=== PATIENT | female | born 1975 | race Caucasian/White ===

== ENCOUNTER 2023-10-17 16:01 | Outpatient (REF) | payer BC, SELFPAY ==
--- NOTE | ~2023-10-17 | XR_ITS ---
EXAMINATION: XR CHEST CLINICAL INFORMATION: Pleuritic chest pain. COMPARISON: None available. TECHNIQUE: 2 views of the chest were obtained. FINDINGS: Heart size is normal. There is no consolidation within either lung. There is asymmetric elevation of the right hemidiaphragm. There is no pleural effusion or pneumothorax. No acute osseous abnormality. XR/XR chest 2V IMPRESSION: No acute cardiopulmonary disease.
== END 2023-10-17 16:02 | disposition home or self-care (01) ==
LOC: HO.HHCX 16:01
PROVIDERS: Visit Provider Registered Nurse
DX: R07.9 Chest pain, unspecified (principal)
CPT/HCPCS: 71046

== ENCOUNTER 2025-03-10 12:39 | Outpatient (REF) | payer BC, SELFPAY ==
--- NOTE | ~2025-03-10 | XR_ITS ---
EXAMINATION: XR KNEE, RIGHT CLINICAL INFORMATION: PAIN COMPARISON: None available. TECHNIQUE: AP and lateral views of the right knee. FINDINGS: There is a joint effusion. There is mild narrowing of the medial joint space. There are marginal osteophytes, largest along the lateral joint line and patellofemoral joint. XR/XR knee RT 2V IMPRESSION: Mild osteoarthritis. Joint effusion. Electronically signed by: Tim Lei MD 03/10/2025 01:02 PM EDT
--- OUTSIDE RECORDS SUMMARY | 2025-03-10 17:28 | XMS_ITS | Encounter Summary ---
Author Organization [facility] Address [address] [place] [address] Phone Care Team Providers Care Medication Reconciliation Technician Name Role Phone Jovana Pyle MD Unavailable [phone] Jovana Pyle MD Primary Care Provider + [phone] Rozina Cunningham MBBS Unavailable [phone] Encounter Details Date Type Department Care Team (Late st Contact Info) Description 03/30/2021 Procedure Pass [facility], [facility] [address] [place], [place] [id number] Social History Tobacco Use Types Packs/Day Years Used Date Smoking Tobacco: Never Smokeless Tobacco: Never Alcohol Use Standard Drinks/Week Comments Yes 0 (1 standard drink = 0.6 oz pur e alcohol) rarely Child or Family Care Answer Date Record ed Do you have problems with on e of the following making it difficult for you to work, study, or receive health care? No 10/27/2020 Education Answer Date Recorded Are you interested in help w ith more adult education (for example, completing high school, GED, job training, learning the Beninese language, technical skills, or developing parenting skills)? No 10/27/2020 Food Answer Date Recorded Within the past 6 months we worried whether our food would run out before we got money to buy more. Never True 10/27/2020 Within the past 6 months the food we bought just didn't last and we didn't have enough money to get more. Never True Paying for Meds Answer Date Recorded Do you have trouble paying for medicines? No 10/27/2020 Paying Utility Bills Answer Date Record ed Do you have trouble paying your heating or elect ricity bill? No 10/27/2020 Transportation Answer Date Recorded Has the lack of transportati on kept you from medical appointments or from getting medications? No 10/27/2020 Unemployment Answer Date Recorded Are you currently unemployed or working on a part-time or temporary basis, and looking for work? 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 Not on file Not on file documented as of this encounter Plan of Treatment Not on file documented as of this encounter Visit Diagnoses Not on filedocumented in this encounter Additional Health Concerns Infection Onset Date Last Indicated Resolved Time CoV-Risk 10/12/2023 10/12/2023 10/23/2023 1:21 AM EDT Assessment Noted Time PHQ-2 Depression Total Score: 0 04/05/20 19 3:26 PM EDT documented as of this encounter Care Teams Medication Reconciliation Technician Relationship Specialty Start Date End Date Jovana Pyle MD [address] [place] [address], [address] [address] PCP - General 06/19/17 Jovana Pyle MD [address] [place] [address], [address] [address] Historical LMR Provider 04/01/17 Rozina Cunningham MBBS [address] [place] [address], [address] [address] [email or web address] 10/16/23 documented as of this encounter Additional Source Comments The information contained in this document represents components of the legal health record. It is not the complete legal health record.[facility]
--- OUTSIDE RECORDS SUMMARY | 2025-03-10 17:28 | XMS_ITS | Encounter Summary ---
Author Organization [facility] Address [address] [place] [address] Phone Care Team Providers Care Territory Outside Sales Manager Name Role Phone Jovana Pyle MD Unavailable [phone] Jovana Pyle MD Primary Care Provider [phone] Rozina Cunningham MB Unavailable [phone] Encounter Details Date Type Department Care Team (Late st Contact Info) Description 04/08/2018 Procedure Pass [facility] Admitting Dept Virtual Department [address] [place], [place] [id number] Social History Tobacco Use Types Packs/Day Years Used Date Smoking Tobacco: Never Smokeless Tobacco: Never Alcohol Use Standard Drinks/Week Comments Yes 0 (1 standard drink = 0.6 oz pur e alcohol) rare, less than once a week Comments Unknown Sex and Gender Information Value Date Recorded Sex Assigned at Not on file Legal Sex Female 9:29 PM EDT Gender Identity Not on file Sexual Orientation Not on file documented as of this encounter Plan of Treatment Not on file documented as of this encounter Visit Diagnoses Not on filedocumented in this encounter Additional Health Concerns Infection Onset Date Last Indicated Resolved Time CoV-Exposed Comment:Recent close contact 11/15/2019 11/15/2019 11/29/2019 1:23 AM EDT CoV-Risk 01/14/2020 01/15/2020 01/29/2020 1:23 AM EDT CoV-Exposed Comment:Recent close contact 04/10/2020 04/10/2020 04/24/2020 1:24 AM EST CoV-Risk 10/12/2023 10/12/2023 10/23/2023 1:21 AM EDT documented as of this encounter Care Teams Territory Outside Sales Manager Relationship Specialty Start Date End Date Jovana Pyle MD [address] [place] [address], [address] [place] [address] PCP - General 06/19/17 Jovana Pyle MD [address] [place] [address], [address] [place] [address] [email or web address] Historical LMR Provider 04/01/17 Rozina Cunningham MBBS [address] [place] [address], [address] [address] [email or web address] 10/16/23 documented as of this encounter Additional Source Comments The information contained in this document represents components of the legal health record. It is not the complete legal health record.[facility]
--- OUTSIDE RECORDS SUMMARY | 2025-03-10 17:28 | XMS_ITS | Encounter Summary ---
Author Organization [facility] Address [address] [place] [address] Phone Care Team Providers Care Child Care Coordinator Name Role Phone Jovana Pyle MD Unavailable [phone] Jovana Pyle MD Primary Care Provider + [phone] Rozina Cunningham MBBS Unavailable [phone] Encounter Details Date Type Department Care Team (Late st Contact Info) Description 04/06/2022 Procedure Pass [facility], [facility] [address] [place], [place] [id number] Social History Tobacco Use Types Packs/Day Years [...] high school, GED, job training, learning the Kazakh language, technical skills, or developing parenting skills)? [...] 10/23/2023 1:21 AM EDT Assessment Noted Time PHQ-9 Depression Total Score: 1 09/04/19 22 4:31 PM EDT PHQ-2 Depression Total Score: 0 09/04/19 22 4:31 PM EDT documented as of this encounter Care Teams Child Care Coordinator Relationship Specialty Start Date End Date Jovana Pyle MD [address] [place] [address], [address] [address] PCP - General 06/19/17 Jovana Pyle MD [address] [place] [address], [address] [address] Historical LMR Provider 04/01/17 Rozina Cunningham MBBS [address] [place] [address], [address] [address] [email or web address] 10/16/23 documented as of this encounter Additional Source Comments The information contained in this document represents components of the legal health record. It is not the complete legal health record.[facility]
--- OUTSIDE RECORDS SUMMARY | 2025-03-10 17:28 | XMS_ITS | Encounter Summary ---
Author Organization [facility] Address [address] [place] [address] Phone Care Team Providers Care Program Eligibility Specialist Name Role Phone Jovana Pyle MD Unavailable [phone] Jovana Pyle MD Primary Care Provider + [phone] Rozina Cunningham MBBS Unavailable [phone] Encounter Details Date Type Department Care Team (Late st Contact Info) Description 01/11/2021 Procedure Pass [facility] Admitting Dept Virtual Department [address] [place], [place] [phone] Social History Tobacco Use Types Packs/Day Years [...] high school, GED, job training, learning the Polish language, technical skills, or developing parenting skills)? [...] documented as of this encounter Care Teams Program Eligibility Specialist Relationship Specialty Start Date End Date Jovana Pyle MD [address] [place] [address], [address] [address] PCP - General 06/19/17 Jovana Pyle MD [address] [place] [address], [address] [address] Historical LMR Provider 04/01/17 Rozina Cunningham MBBS [address] [place] [address], [address] [address] [email or web address] 10/16/23 documented as of this encounter Additional Source Comments The information contained in this document represents components of the legal health record. It is not the complete legal health record.[facility]
--- OUTSIDE RECORDS SUMMARY | 2025-03-10 17:28 | XMS_ITS | Encounter Summary ---
Author Organization [facility] Address [address] [place] [address] Phone Care Team Providers Care Return Agent Name Role Phone Jovana Pyle MD Unavailable [phone] Jovana Pyle MD Primary Care Provider + [phone] Rozina Cunningham MB Unavailable [phone] Encounter Details Date Type Department Care Team (Late st Contact Info) Description 08/12/2024 Procedure Pass [facility] - [address] [place] [address] Social History Tobacco Use Types Packs/Day Years Used Date Smoking Tobacco: Never Smokeless Tobacco: Never Alcohol Use Standard Drinks/Week Comments Yes 0 (1 standard drink = 0.6 oz pur e alcohol) rarely Child or Family Care Answer Date Record ed Do you have problems with on e of the following making it difficult for you to work, study, or receive health care? No 12/22/2023 Education Answer Date Recorded Are you interested in help w ith more adult education (for example, completing high school, GED, job training, learning the Japanese language, technical skills, or developing parenting skills)? No 12/22/2023 Are you concerned about learning? Not on file 12/22/2023 No 12/22/2023 Yes 12/22/2023 Food Answer Date Recorded Within the past 6 months we worried whether our food would run out before we got money to buy more. Never True 12/22/2023 Within the past 6 months the food we bought just didn't last and we didn't have enough money to get more. Never True Residential Stability Answer Date Recor ded What is your housing situation today? I have milli diop 12/22/2023 How many times have you move d in the past 12 months? Zero (I did not move) 12/22/2023 Paying for Meds Answer Date Recorded Do you have trouble paying for medicines? No 12/22/2023 Paying Utility Bills Answer Date Record ed Do you have trouble paying your heating or elect ricity bill? No 12/22/2023 Transportation Answer Date Recorded Has the lack of transportati on kept you from medical appointments or from getting medications? No 12/22/2023 Unemployment Answer Date Recorded Are you currently unemployed or working on a part-time or temporary basis, and looking for work? No 10/27/2020 Digital Access Answer Date Recorded No 12/22/2023 Yes 12/22/2023 Do you have reliable internet access at home? Ye s 12/22/2023 Do you have a device (e.g., phone, tablet, computer) with a working camera? Yes 12/22/2023 Intimate Partner Violence Answer Date R ecorded Denied Basic Needs Not on file 12/22/2023 In the past 12 months have y ou been in a relationship with a person who hurts, threatens, or tries to control you? No 12/22/2023 Worried food would run out Not on file 12/21 In the past 12 months have y ou been in a relationship with a person who hurts, threatens, or tries to control you? No 12/22/2023 Comments No Sex and Gender Information Value [...] filedocumented in this encounter Additional Health Concerns Assessment Noted Time PHQ-9 Depression Total Score: 1 09/04/19 22 4:31 PM EDT PHQ-2 Depression Total Score: 0 12/22/19 24 3:17 PM EDT documented as of this encounter Care Teams Return Agent Relationship Specialty Start Date End Date Jovana Pyle MD [address] [place] [address] [email or web address] PCP - General 06/19/17 Jovana Pyle MD [address] [place] [address], [address] [place] [address] [email or web address] Historical LMR Provider 04/01/17 Rozina Cunningham MBBS [address] [place] [address], [address] [place] [address] [email or web address] 10/16/23 documented as of this encounter Additional Source Comments The information contained in this document represents components of the legal health record. It is not the complete legal health record.[facility]
--- OUTSIDE RECORDS SUMMARY | 2025-03-10 17:30 | XMS_ITS | Clinical Summary ---
Author Organization [facility] Address [address] [facility] [address] [place] [id number] Phone Care Team Providers Care 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 Name Role Phone Jovana Pyle MD Unavailable [phone] Jovana Pyle MD Primary Care Provider + [phone] Rozina Cunningham MB Unavailable [phone] Allergies Active Allergy Reactions Criticality Noted Date Comments Sulfa (Sulfonamide Antibiotics) Hives Medium 09/14 Medications esomeprazole (NEXIUM) 40 MG capsule Take 1 capsule by mouth daily before breakfast. Active EPINEPHrine (EPIPEN 2-KAREN) 0.3 mg/0.3 mL auto-injector Inject 0.3 mL (0.3 mg total) into the muscle as needed for anaphylaxis. 1 Device 05/11/2019 Active mometasone (NASONEX) 50 mcg/actuation nasal spray 2 sprays by Nasal route daily. As needed Active cholecalciferol , vitamin D3, (VITAMIN D3) 100 mcg (4,000 unit) capsule Take 2,000 Units by mouth. Active cetirizine (ZYRTEC) 10 MG tablet Take 10 mg by mouth daily. Active famotidine (PEPCID) 20 MG tablet Take 40 mg by mouth nightly at bedtime. Active SYNTHROID 125 mcg tablet TAKE ONE TABLET BY MOUTH EVERY MORNING 90 tablet 3 07/07/2024 Active ELIQUIS 5 mg tabletIndicatio ns:Acute deep vein thrombosis (DVT) of popliteal vein of right lower extremity TAKE ONE TABLET BY MOUTH TWICE A DAY 60 tablet 6 07/19/2024 Active venlafaxine (EFFEXOR-XR) 37.5 MG 24 hr capsule TAKE ONE CAPSULE BY MOUTH EVERY DAY 90 capsule 3 09/01/2024 Active Active Problems Problem Noted Date Diagnosed Date Iron deficiency anemia due to chronic blood loss 2023 Lymphadenopathy, inguinal 11/14/2023 Leucocytosis 11/14/2023 Anemia in other chronic diseases classified else where 11/14/2023 Thrombocytosis 11/14/2023 Acute deep vein thrombosis ( DVT) of popliteal vein of right lower extremity 11/14/2023 Assessment & Plan (06/23/2024 3:03 PM EST): IMPRESSION: This is a 48-year-old woman with the following hematological diagnoses: Right lower extremity below the knee DVT, appears unprovoked 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 DVT. This appears unprovoked. Traveling for long distances is not a major risk factor for thrombosis. Hypercoagulable screen came back showing protein S activity of 21% although repeat testing showed 39%. Protein S antigen is within normal range. This mild decrease in protein S activity is not clinically significant. According to current guidelines acute V?? management is not different from V?E in the general population and typically includes anticoagulation for at least three to six months She has been on anticoagulation for over 8 months now and I think it is reasonable to discontinue it any further. If she develops recurrent thrombosis following discontinuation of anticoagulation, then she will be a candidate for lifelong anticoagulation. Iron deficiency anemia. This is likely secondary to menstrual blood loss. This has resolved. Thrombocytosis, leukocytosis: This is either normal variant or secondary/reactive in nature. She underwent extensive laboratory evaluation in this regard which came back unremarkable. Some degree of leukocytosis can be seen in obese people. Since this has been overall stable and intermittent in nature, is reassuring and speaks against any underlying hematological disease/bone marrow disease process. I reassured her about this. Right inguinal lymphadenopathy: The report stated non enlarged lymph node although it measures 3.4 x 0.5 x 1.4 cm. I discussed her case in our tumor conference and scans were reviewed. Consensus: It appears that the lymph node is elongated hence 3.[address] otherwise has normal hilum and no other concerning features so this is a normal variant and no further surveillance ultrasound is indicated in this setting. RECOMMENDATIONS: She can discontinue Eliquis She is traveling to [place] sometime next month and will discontinue Eliquis after she comes back Continue oral iron supplements 2-3 times a week CBCD and iron studies monitoring every 6 months which can be done through her PCPs office Follow-up with hematology on as-needed basis Thank you very much for allowing to participate in this patient's care Assessment & Plan (2023 10:30 PM EDT): IMPRESSION: This is a 47-year-old woman with the following hematological diagnoses: Right lower extremity below the knee DVT, appears unprovoked Hypercoagulable screen came back showing protein as deficiency (reduced protein S activity of 21% although normal protein S free antigen) Chronic intermittent borderline leukocytosis Negative PCR for BCR/ABL, negative peripheral blood flow cytometry Anemia, likely in the setting of iron deficiency secondary to heavy menstrual blood loss Chronic intermittent thrombocytosis Negative JAK2 V6 1 7 and exon 12-15 mutation, Negative MPL AND CALR gene mutation Right inguinal lymphadenopathy likely reactive in nature DISCUSSION: I discussed all impression, differential diagnosis, natural history of the disease and further management in this regard. DVT. This appears unprovoked. Traveling for long distances is not a major risk factor for thrombosis. 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 Patient will undergo repeat testing for this and if it is confirmed, then patient will be a candidate for indefinite/lifelong anticoagulation in this setting. Anemia. Patient has evidence of iron deficiency likely secondary to heavy menstrual blood loss. She has been on oral iron supplement but continues to be significantly iron deficient and anemic. I recommended a course of IV iron infusion. Thrombocytosis, leukocytosis: This is either normal variant or secondary/reactive in nature although it is important to rule out an underlying hematological disease/bone marrow disease process. She underwent extensive laboratory evaluation in this regard which came back unremarkable. Leukocytosis has resolved although thrombocytosis has worsened. This may be secondary to underlying iron deficiency. I recommended IV iron infusion to correct iron deficiency and once its corrected and if patient continues to have significant thrombocytosis, will consider bone marrow aspiration and biopsy. Right inguinal lymphadenopathy: It is likely reactive in nature since it is on the same side where the thrombosis and ultrasound also did not show any aggressive features. I recommended follow-up right inguinal ultrasound in 2 months from now. RECOMMENDATIONS: Continue Eliquis 5 mg every 12 hours Repeat testing for protein as deficiency Patient is a likely candidate for indefinite/lifelong anticoagulation Schedule a course of IV iron infusion Follow-up right inguinal ultrasound in 2 months Return for follow-up in 2 months Thank you very much for allowing to participate in this patient's care Assessment & Plan (11/14/2023 10:02 AM EDT): IMPRESSION: This is a 47-year-old woman with the following hematological diagnoses: Right lower extremity below the knee DVT, appears unprovoked Chronic intermittent borderline leukocytosis Anemia, likely in the setting of iron deficiency secondary to heavy menstrual blood loss Chronic intermittent thrombocytosis Right inguinal lymphadenopathy likely reactive in nature DISCUSSION: I discussed all impression, differential diagnosis, natural history of the disease and further management in this regard. DVT. This appears unprovoked. Traveling for long distances is not a major risk factor for thrombosis. Patient will undergo hypercoagulable screen to further decide about duration of anticoagulation. Since this is below the knee DVT, indefinite anticoagulation is not recommended even if it is unprovoked. I would recommend a minimum 3 months of anticoagulation in the setting. This recommendation may change depending upon the results of the hypercoagulable screen. Anemia. Patient has evidence of iron deficiency likely secondary to heavy menstrual blood loss. I recommended that she starts taking oral iron supplements and if she develops any side effects from this or does not respond to this, then we will consider IV iron infusion. Thrombocytosis, leukocytosis: This is either normal variant or secondary/reactive in nature although it is important to rule out an underlying hematological disease/pulmonary disease process. Patient will undergo appropriate laboratory evaluation in this regard. Right inguinal lymphadenopathy: It is likely reactive in nature since it is on the same side where the thrombosis and ultrasound also did not show any aggressive features. I recommended follow-up right inguinal ultrasound in 2 months from now. RECOMMENDATIONS: Continue Eliquis 5 mg every 12 hours for total of 3 months at this time Obtain hypercoagulable screen and if positive, will change the recommendation about duration of anticoagulation Start oral iron supplement, Vitron-C once daily. If patient does not respond to it or develop any significant side effects, will consider IV iron infusion CBCD, nutritional studies, inflammatory markers Multiple myeloma screen Peripheral blood flow cytometry, JAK2 mutation analysis, peripheral blood PCR for BCR-ABL, LIDA/MPL mutation analysis Follow-up right inguinal ultrasound in 2 months Follow-up with me over the phone to discuss the results of the blood work Thank you very much for allowing to participate in this patient's care Anxiety and depression 04/06/2019 Esophagitis 04/08/2018 Overview (04/08/2018): EGD 2018 Other hemorrhoids 04/08/2018 Overview (04/08/2018): Colonoscopy 2018 GERD (gastroesophageal reflux disease) 8 Hypothyroid 09/25/2017 Obesity 09/25/2017 Resolved Problems Problem Noted Date Diagnosed Date Resolved Date Anal fissure 04/05/2019 12/22/2023 Overview (04/05/2019): S/p surgical excision with polyp Dizziness 09/25/2017 12/22/2023 Immunizations Immunization Administration Dates Next Due COVID-19 (Pre-04/07) Moderna Vaccine, mRNA, PF 0 07/06/2020,06/08/2020 INFLUENZA, SPLIT VIRUS, TRIVALENT PF 03/27/2016 INFLUENZA, SPLIT VIRUS, TRIVALENT W/ PRESERVATIV E IM 03/19/2011 Influenza Quadrivalent MDCK Preservative Free IM 04/09/2022,03/10/2020 Influenza Quadrivalent Preservative Free IM 04/16,04/11/2021 Influenza Quadrivalent w/ Preservative IM 2014 Influenza, Unspecified Formulation 04/01/2019, Tdap 04/05/2019 Family History Medical History Relation Comments No Known Problems Brother Colon polyps Father Breast cancer Maternal Grandmother post menopa usal Hyperlipidemia Maternal Grandmother Bipolar disorder Mother possible bipola r, anxiety Hypertension Mother Colon cancer Paternal Grandfather Colon cancer Paternal Uncle Colon polyps Sister Hypertension Sister Takayasu's disease Sister Relation Status Comments Brother Alive Father Alive Maternal Grandmother Alive Mother Alive Paternal Grandfather Paternal Uncle Sister Alive Social History Tobacco Use Types Packs/Day Years Used Date Smoking Tobacco: Never Smokeless Tobacco: Never Tobacco Cessation:Counseling Given: Not Answered Alcohol Use Standard Drinks/Week Comments Yes 0 [...] high school, GED, job training, learning the [place] language, technical skills, or developing parenting skills)? [...] your housing situation today? I have milli sing 12/22/2023 How many times have you move [...] have reliable internet access at home? Ye thuan 12/22/2023 Do you have a device (e.g., [...] file Not on file Not on file Last Filed Vital Signs Vital Sign Reading Time Taken Comments Blood Pressure 128/62 12/22/2023 3:40 PM EDT Pulse 63 12/22/2023 3:40 PM EDT Temperature 36.7 C (98 F) 12/22/2023 3:40 PM EDT Respiratory Rate 19 10/12/2023 9:40 AM EDT Oxygen Saturation 99% 12/22/2023 3:40 PM EDT Inhaled Oxygen Concentration - - Weight 129.5 kg (285 lb 8 oz) 11/13/2023 12:04 P M EDT Height 157.5 cm (5' 2.01 ) 11/13/2023 12:04 PM E DT Body Mass Index 52.21 11/13/2023 12:04 PM EDT Plan of Treatment Health Maintenance Due Date Last Done Comments COLOGUARD 12/01/2019 FIT TEST 12/01/2019 FOBT 12/01/2019 SIGMOIDOSCOPY 12/01/2019 VIRTUAL COLONOSCOPY 12/01/2019 CREATININE LEVEL 09/23/2024 09/24/2023, , 04/09/2022, Additional history exists TSH LEVEL 09/23/2024 09/24/2023, 08/14, 04/09/2022, Additional history exists PNEUMOCOCCAL VACCINES (50+ years) (1 of 1 - PCV) 2024 ZOSTER VACCINES (1 of 2) 2024 DEPRESSION SCREENING 12/21/2024 12/22/2023, 09/04/19 22 INFLUENZA VACCINE (#1) 2025 , 04/09/2022, 04/11/2021, Additional history exists COVID-19 VACCINE ( - season) 2025 04/25/2023, 04/19/2022, 04/27/2021, Additional history exists MAMMOGRAM 09/22/2026 09/22/2024, 07/17, 05/24/2022, Additional history exists SCREENING FOR DIABETES 09/23/2026 09/24/2023, 2023 LIPID PANEL 08/27/2027 08/26/2022, 08/14, 01/06/2018, Additional history exists PAP SMEAR 12/21/2028 12/22/2023, 03/17, 04/05/2019, Additional history exists Adult Td,Tdap Booster 04/05/2029 04/05/2019 COLONOSCOPY 01/11/2031 01/11/2021, 03/17, 12/07/2014 COLORECTAL CANCER SCREENING 01/11/2031 HIV ONE-TIME SCREENING (18-65 YEARS) Completed 09/02/2012 HEPATITIS C SCREENING Completed 01/27/2024 SMOKING STATUS SCREENING (Once After 26 Yrs) Completed 09/22/2024 HEPATITIS A VACCINES Aged Out No long er eligible based on patient's age to complete this topic HIB VACCINES Aged Out No longer eligi ble based on patient's age to complete this topic MENINGOCOCCAL VACCINES (ACWY) Aged Out No longer eligible based on patient's age to complete this topic MENINGOCOCCAL VACCINES (B) Aged Out N o longer eligible based on patient's age to complete this topic Medical Devices Not on file Procedures Procedure Name Priority Date/Time Associated Diagnosis Comments BI MAMMOGRAM SCREENING WITH TOMOSYNTHESIS WITH CAD (BILATERAL) Routine 09/22/2024 3:26 PM EDT Visit for screening mammogram HEPATITIS C ANTIBODY, QUALITATIVE Routine 01/27/2024 3:59 PM EDT Need for hepatitis C screening test PAP TEST Routine 12/22/2023 12:00 AM EDT TSH WITH REFLEX Routine 09/24/2023 1:41 PM EDT Acquired hypothyroidism COMPREHENSIVE METABOLIC PANEL Routine 09/24/2023 1:41 PM EDT Pre-diabetes Class 3 severe obesity with body mass index (BMI) of 50.0 to 59.9 in adult, unspecified obesity type, unspecified whether serious comorbidity present LIPID PANEL Routine 08/26/2022 3:15 PM EDT Class 3 severe obesity with body mass index (BMI) of 50.0 to 59.9 in adult, unspecified obesity type, unspecified whether serious comorbidity present Pre-diabetes ENDOSCOPY, COLON 01/11/2021 10:1 4 AM EDT OUTSIDE HIV Routine 09/02/2012 from Last 3 Months or Most Recently Relevant to Health Maintenance Results * BI MAMMOGRAM SCREENING WITH TOMOSYNTHESIS WITH CAD (BILATERAL) (09/22/2024 3:26 PM EDT) Anatomical Region Laterality Modality Breast Left, Breast Right, Breast Bilateral Bila teral Mammography 09/22/2024 4:26 PM EDT Impressions 09/22/2024 4:28 PM EDT No mammographic evidence of malignancy in either breast. Annual screening mammography is recommended. BI-RADS 1 NEGATIVE The patient will be notified of the results and recommendations. Narrative 09/22/2024 4:28 PM EDT BI MAMMOGRAM SCREENING WITH TOMOSYNTHESIS WITH CAD (BILATERAL) Additional patient information: Screening. COMPARISON: Comparison is made with relevant prior imaging. Breast composition: The breasts are almost entirely fatty. FINDINGS: No abnormal masses, suspicious calcifications, or other significant findings are identified mammographically in either breast. us Jovana Pyle MD IMG MG EXAMS Final Resu lt * Hepatitis C antibody, qualitative (01/27/2024 3:59 PM EDT) HCV NON-REACTIV E NON-REACTI VE [facility] Blood 01/27/2024 3:59 PM EDT 01/27/2024 4:02 PM EDT us Jovana Pyle MD LAB BLOOD ORDERABLES Final Result [address] [address] * Pap Test (12/22/2023 12:00 AM EDT) 12/22/2023 12/23/2023 9:1 3 AM EDT Narrative SEE NARRATIVE - 12/25/2023 11:29 AM EDT [address] [address] Dye Worker: Lisa Jo MD VISUAL EDUCATION DIRECTOR Cytology Report FINAL DIAGNOSIS A. PAP SMEAR (THIN PREP) CE: SPECIMEN ADEQUACY: Satisfactory for evaluation; transformation zone absent/insufficient. INTERPRETATION: NEGATIVE FOR INTRAEPITHELIAL LESION OR MALIGNANCY. Coccobacilli consistent with shift in kalie This specimen was analyzed by the automated ThinPrep Imaging System ([employer].) and the selected cash were reviewed by a slab grinder. Electronically Signed Out By: SELINA Bhat(ASCP) The Pap test is a screening test primarily for squamous cancers and precursors and has associated false-negative and false-positive results. New technologies such as liquid-based preparations may decrease but will not eliminate all false-negative results. Regular sampling and follow-up of unexplained clinical signs and symptoms are recommended to minimize false negative results. PROCEDURES/ADDENDA HPV Testing (Requested) Ordered Date: 12/23/2023 A. PAP SMEAR (THIN PREP) CE: Human Papilloma Virus Test NEGATIVE for high-risk Human Papilloma Virus types 16, 18, 45 and the Other high risk probe set (Includes 31, 33, 35, 39, 51, 52, 56, 58, 59, 66, 68) Note: Testing performed by [employer] Onclarity HR-HPV analysis. Clinical correlation is advised. This HPV test was performed at [facility], [address] [place] [address]. This test has been FDA approved for both SurePath and ThinPrep cervical cytology specimens. The accuracy and precision of this test for all other specimen sources has been verified in the Cytopathology Laboratory of the [facility] and has not been cleared or approved by the U.S. Food and Drug Administration. Clinical correlation is advised. CLINICAL HISTORY Date of Last Menstrual Period: 12-08-2023 Other Clinical Conditions: Screening Pap SPECIMEN SOURCE A: PAP SMEAR (THIN PREP) CE Patient Name: MOLLY CARSON : 1975 (Age: 48) Sex: F Institution: [facility] Location: [facility] Date of Collection: 12/22/2023 Date of Reported: 12/25/2023 11:29 Results to: Jovana Pyle MD, BA us Jovana Pyle MD CYTOLOGY ORDERABLES Final Result SEE NARRATIVE * (ABNORMAL) Comprehensive metabolic panel (09/24/2023 1:41 PM EDT) SODIUM 142 133 - 146 mmol/L [facility] POTASSIUM 4.7 3.3 - 5.1 mmol/L [facility] CHLORIDE 107 96 - 108 mmol/L [facility] CO2 25 21 - 35 mmol/L [facility] BUN 13 6 - 19 mg/dL [facility] CREATININE 0.60 0.5 - 1.5 mg/dL [facility] GLUCOSE 100(H) 70 - 99 mg/dL [facility] ALBUMIN 3.7(L) 3.9 - 4.8 g/dL [facility] TOTAL PROTEIN 7.1 6.5 - 8.0 g/dL [facility] CALCIUM 9.2 8.4 - 10.3 mg/dL [facility] ALKALINE PHOSPHATASE 75 39 - 117 U/L [facility] TOTAL BILIRUBIN 0.3 0.0 - 1.2 mg/dL [facility] AST 24 0 - 37 U/L [facility] ALT 17 0 - 40 U/L [facility] GLOBULIN 3.4 1 - 4.8 g/dL [facility] EGFR 111 >59 mL/min/1.7 3m2 [facility] Comment:Estimated glomerular filtration rate calculated using the CKD-EPI refit equation. ANION GAP 15 10 - 20 mmol/L [facility] Blood 09/24/2023 1:41 PM EDT 09/24/2023 1:44 PM EDT us Jovana Pyle MD LAB BLOOD ORDERABLES Final Result Performing Organization Address City/[facility]/ZIP Co de Phone Number [address] [address] * TSH with reflex (09/24/2023 1:41 PM EDT) TSH 1.85 0.27 - 4.20 uIU/mL [facility] Blood 09/24/2023 1:41 PM EDT 09/24/2023 1:44 PM EDT us Jovana Pyle MD LAB BLOOD ORDERABLES Final Result Performing Organization Address [facility] Co de Phone Number [address] [address] * Lipid panel (08/26/2022 3:15 PM EDT) HDL 37 mg/dL [facility] Comment: Interpretation <40 mg/dL: Low HDL cholesterol (major risk factor for CHD) Greater than or equal to 60 mg/dL: High HDL cholesterol ( negative risk factor for CHD) HDL - cholesterol is affected by a number of factors, e.g. smoking, excerise, hormones, sex and age. CHOLESTEROL 154 0 - 240 mg/dL [facility] TRIGLYCERIDES 151 30 - 160 mg/dL [facility] LDL 87 50 - 129 mg/dL [facility] Comment: LDL levels in terms of risk for coronary heart disease: <100 mg/dL: Optimal 100-129 mg/dL: Near or above optimal 130-159 mg/dL: Borderline high 160-189 mg/dL: High >190 mg/dL: Very High CARDIAC RISK RATIO 4.2 3.3 - 4.4 C [facility] Blood 08/26/2022 3:15 PM EDT 08/26/2022 3:20 PM EDT Jovana Pyle MD LAB BLOOD ORDERABLES Final Result [address] [address] * ENDOSCOPY, COLON (01/11/2021 10:14 AM EDT) Narrative Transcriptions Blaine Metzger MD - 01/11/2021 10:14 AM EDT Patient Name: Molly Alli Attending MD:: BLAINE METZGER MD, Procedure Date: 01/11/2021 10:14 AM Date of : 1975 Age: 45 Admit Type: Outpatient Gender: Female Room: [facility] 04 Referring MD: Deborah Jung Exam Type: Colonoscopy Indications: Family history of colon cancer in a distantrelative, Family history of colonic polyps in a first-degree relative, Iron deficiency anemia Medications: Monitored Anesthesia Care Procedure: Informed consent was obtained from the patient after discussion of the indications, limitations, alternatives, benefits, and risks of the procedure. Risks specifically discussed include but are not limited to medication reactions, missed lesions, bleeding, perforation, or the need for emergentsurgery. Throughout the procedure, the patient's bloodpressure, pulse, end-tidal CO2, and oxygen saturations were monitored continuously. The Olympus pediatric variable colonoscopePCF-[id number] #4 was introduced through the anus and advanced tothe terminal ileum. The colonoscopy was performedwithout difficulty. The patient tolerated the procedurewell. The quality of the bowel preparation was excellent.The quality of the bowel preparation was evaluated using the BBPS (Jarratt Bowel Preparation Scale) withscores of: Right Colon = 3 (entire mucosa seen well with no residual staining, small fragments of stool oropaque liquid), Transverse Colon = 3 (entire mucosa seenwell with no residual staining, small fragments of stoolor opaque liquid) and Left Colon = 3 (entire mucosaseen well with no residual staining, small fragments of stool or opaque liquid). The total BBPS score equals9. The quality of the bowel preparation wasexcellent. Complications: No immediate complications. Estimated blood loss:None. Findings: The perianal and digital rectal examinations were normal. The terminal ileum appeared normal. Scattered small and large-mouthed diverticula were found in the sigmoid colon. Internal hemorrhoids were found during retroflexion. The hemorrhoids were mild. The exam was otherwise normal throughout theexamined colon. Impression: - The examined portion of the ileum was normal. - Diverticulosis in the sigmoid colon. - Internal hemorrhoids. - No specimens collected. Recommendation: - Discharge patient to home. - Repeat colonoscopy in 5 years for surveillance. - Return to GI office as previously scheduled. - To visualize the small bowel, perform videocapsule endoscopy at appointment to be scheduled. BLAINE METZGER MD, 01/11/2021 10:47:23 AM This report has been signed electronically. Number of Addenda: 0 Note Initiated On: 01/11/2021 10:14 AM Procedure Code(s): --- Professional --- 76225, Colonoscopy, flexible; diagnostic, including collection of specimen(s) by brushing or washing, when performed (separateprocedure) --- Technical --- 34601, Colonoscopy, flexible; diagnostic, including collection of specimen(s) by brushing or washing, when performed (separateprocedure) Diagnosis Code(s): --- Professional --- K64.8, Other hemorrhoids Z80.0, Family history of malignant neoplasm of digestive organs Z83.71, Family history of colonic polyps D50.9, Iron deficiency anemia, unspecified K57.30, Diverticulosis of large intestine without perforation or abscess without bleeding --- Technical --- K64.8, Other hemorrhoids Z80.0, Family history of malignant neoplasm of digestive organs Z83.71, Family history of colonic polyps D50.9, Iron deficiency anemia, unspecified K57.30, Diverticulosis of large intestine without perforation or abscess without bleeding CPT copyright 2018 [employer]. All rights reserved. The codes documented in this report are preliminary and upon nuclear technician reviewmay be revised to meet current compliance requirements. Procedure Date: 01/11/2021 10:14:[address] [place] [id number] Deborah Jung NP GI PROCEDURE ORDERABLES Hilda l Result * OUTSIDE HIV TEST (09/02/2012) HIV - External Neg Historical Provider LAB BLOOD ORDERABLES Hilda l Result from Last 3 Months or Most Recently Relevant to Health [place] [id number] [facility] 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 Teams 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 Relationship Specialty Start Date End Date Jovana Pyle MD [address] [place] [address], [address] [place] [address] [email or web address] PCP - General 06/19/17 Jovana Pyle MD [address] [place] [address], [address] [place] [address] [email or web address] Historical LMR Provider 04/01/17 Rozina Cunningham MBBS [address] [place] [address], [address] [place] [address] [email or web address] 10/16/23 Additional Source Comments The information contained in this document represents components of the legal health record. It is not the complete legal health record.[facility]
--- OUTSIDE RECORDS SUMMARY | 2025-03-10 17:30 | XMS_ITS | Encounter Summary ---
Author Organization 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 Not on [facility] 10/29/2022 Are you concerned about learning? Not on file 10/29/2022 No 10/29/2022 No 10/29/2022 Food Answer Date Recorded Within the past [...] 10/27/2020 Digital Access Answer Date Recorded No 11/11/2022 No 11/11/2022 Reliable internet access at home? Not on file 11/11/2022 Device with a working camera? 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 Medical Oncology 10/16/23 documented as of this encounter Additional Source Comments The information contained in this document represents components of the legal health record. It is not the complete legal health record.[facility]
== END 2025-03-10 12:40 | disposition home or self-care (01) ==
LOC: HO.HHCX 12:39
PROVIDERS: Visit Provider Registered Nurse
DX: M25.561 Pain in right knee (principal)
CPT/HCPCS: 73560

== ENCOUNTER → 2025-03-10 13:02 | Outpatient (BNV) | payer BC, SELFPAY | PROVIDERS: Visit Provider Radiology Diagnostic Radiology | DX: M25.561 Pain in right knee (principal) | CPT/HCPCS: 73560 ==

== ENCOUNTER 2025-05-24 07:45 | Outpatient (AMB) | payer BC, SELFPAY ==
--- NOTE | 2025-05-24 07:53 | MHC.OFFVIS ---
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 The patient describes her pain as sharp in nature. She notices the pain most when she is going up and down stairs or getting out of a chair. Her symptoms have gotten worse over the last few months. She has tried Motrin which gives her minimal relief. Allergies Sulfa (Sulfonamide Antibiotics) Allergy (Unknown, Verified 05/24/25 07:57) rash sulfamethoxazole (From Bactrim) Allergy (Verified 05/24/25 07:57) Rash trimethoprim (From Bactrim) Allergy (Verified 05/24/25 07:57) Rash Medication List - Last Reconciled 05/24/25 by Bonifacio Washington MD esomeprazole magnesium (Nexium) 40 mg PO DAILY levothyroxine 137 mcg PO DAILY semaglutide (weight loss) (Wegovy) 2.4 mg subcut QWEEK [facility] Social History (Updated 05/24/25 @ 07:57 by Patsy Nathan) Alcohol intake: never Patient Tobacco Use Status: Never used Tobacco Current occupational status: employed Physical Exam Extrem Other: Right knee examination shows minimal crepitus with range of motion, tenderness along her medial joint line, no instability Results Reviewed Results Reviewed: Standing full weight-bearing x-rays of the patient's right knee show mild diffuse joint space narrowing, no acute bony abnormalities Assessment & Plan Assessment & Plan (1) Right knee pain: Code(s): M25.561 - Pain in right knee Category: Medical Plan Molly presents with right knee pain possibly due to a medial meniscus tear. Thus, I will send the patient for an MRI of her right knee for further evaluation. I will see her back once the MRI is completed to discuss the findings and treatment options. I also gave her a prescription to go to formal physical therapy. She will avoid any activities that aggravate her pain. She will contact me prior to her MRI should her symptoms worsen in any way. I spent 20 minutes in reviewing the patient's records and imaging studies, seeing the patient and documenting in the medical record. Orders: Orders PT Evaluation and Treatment Today M25.561 - Pain in right knee Coding Level of Care Code New Pt Level 3 (58330) Complex visit Add On G2211 Diagnoses Right knee pain M25.561
== END 2025-05-24 08:12 | disposition home or self-care (01) ==
LOC: HO.HOS 07:45
PROVIDERS: Visit Provider Orthopaedic Surgery
DX: M25.561 Pain in right knee (principal)
CPT/HCPCS: 99203